=== PATIENT | female | born 1950 | race Caucasian/White ===

== ENCOUNTER 2017-05-25 10:44 | Emergency (ER) | payer MEDICARE, OTHER ==
[~2017-05-25] VITALS: Ht 165.1 cm; Wt 87.7 kg
[~2017-05-25 10:44] MED LIST: AVELOX400 MG OR; BREO ELLIPTA1 INH IN; CIPRO500 MG OR; CLONAZEPAM0.5 MG PO; CYMBALTA30 MG OR; DARVOCET-N 100100 MG OR; DULERA1 AE1 IN; FLEXERIL PO; GABAPENTIN300 MG PO; KLOR-CON M2020 MEQ PO; LINZESS145 MCG PO; LISINOP/HCTZ1 TA1 PO; LISINOP/HCTZ1 TA2 PO; LORTAB 10-325 M1 TAB PO; LORTAB 1010 MG PO; LUNESTA2 M2 PO; LYRICA25 MG PO; MELOXICAM15 MG OR; METRONIDAZOL500 MG PO; NEXIUM20 M1 PO; OXYCODO-APAP1 TA2 PO; PANTOPRAZOLE SO40 MG PO; PERCOCET 5/325M1 TAB OR; PREMARIN1.25 MG PO; RAPAFLO8 MG PO; REGLAN10 MG OR; SINGULAIR10 MG PO; SYMBALTA; SYNTHROID OR; SYNTHROID100 MCG PO; SYNTHROID50 MCG PO; TIZANIDINE4 MG OR; ULTRAM50 M1 PO; VALACYCLOVIR H500 MG PO; VICODIN HP1 TA1 PO; XYZAL5 MG PO; ZOFRAN ODT4 MG PO
[2017-05-25] MEDS ORDERED: LORTAB 1010 MG PO (11:38)
[2017-05-25] MEDS ORDERED: LORAZEPAM0.5 MG PO (11:39)
[2017-05-25] MEDS ORDERED: PREMARIN0.3 MG PO ×2 (11:40→11:41)
[2017-05-25] MEDS ORDERED: PANTOPRAZOLE SO40 MG PO (11:40)
[2017-05-25] MEDS ORDERED: VALACYCLOVIR H500 MG PO (11:42)
[2017-05-25] MEDS ORDERED: TIZANIDINE HCL4 MG PO (11:43)
[2017-05-25] MEDS ORDERED: ONDANSETRON HCL4 MG PO (11:44)
[2017-05-25] MEDS ORDERED: VENTOLIN HFA IN (11:45)
[2017-05-25] MEDS ORDERED: NASONEX50 MCG/ACT (11:45)
[2017-05-25] MEDS ORDERED: LINZESS145 MCG PO (11:46)
[2017-05-25] MEDS ORDERED: BREO ELLIPTA 101 INH IN (11:46)
[2017-05-25] MEDS ORDERED: VOLTAREN1%GEL TOP (11:47)
[2017-05-25] MEDS ORDERED: LIDOCAINE TD (11:51)
[2017-05-25] MEDS ORDERED: FLECTOR1.3 % EX (11:52)
[2017-05-25] MEDS ORDERED: LYRICA25 MG PO (11:53)
[2017-05-25] MEDS ORDERED: MEDDOSEPAK PO (13:14)
[2017-05-25] MEDS ORDERED: PEPCID20 MG PO (13:14)
[2017-05-25] MEDS ORDERED: BENADRYL 50MG C50 MG PO (13:14)
[2017-05-25 13:45] VITALS: BP 163/69
== END 2017-05-25 13:45 | disposition home or self-care (01) ==
LOC: ED 10:44
DX: T78.3XXA Angioneurotic edema, initial encounter (principal); I10 Essential (primary) hypertension; E03.9 Hypothyroidism, unspecified; M79.7 Fibromyalgia; Z87.11 Personal history of peptic ulcer disease; Z85.528 Personal history of other malignant neoplasm of kidney; Z85.42 Personal history of malignant neoplasm of other parts of uterus

== ENCOUNTER 2017-12-06 09:00 | Outpatient (RCR) | payer MEDICARE, OTHER ==
[~2017-12-06 09:00] MED LIST changes: +BENADRYL 50MG C50 MG PO; +BREO ELLIPTA 101 INH IN; +FLECTOR1.3 % EX; +LIDOCAINE TD; +LORAZEPAM0.5 MG PO; +MEDDOSEPAK PO; +NASONEX50 MCG/ACT; +ONDANSETRON HCL4 MG PO; +PEPCID20 MG PO; +PREMARIN0.3 MG PO; +TIZANIDINE HCL4 MG PO; +VENTOLIN HFA IN; +VOLTAREN1%GEL TOP
== END 2017-12-20 16:00 | disposition home or self-care (01) ==
LOC: PT 09:00
DX: M54.5 Low back pain (principal)

== ENCOUNTER → 2018-05-12 | Outpatient (REF) | payer MEDICARE, OTHER ==
[2018-05-12 11:49] LABS: HEMATOCRIT 40.8 % (37.0-47.0); HEMOGLOBIN 13.5 g/dl (12.0-16.0); IMMATURE GRANULOCYTES 0.3 % (0.0-5.0); MEAN CELL VOLUME 99.3 fL CALC (80.0-100.0); MEAN CORPUSCULAR HGB 32.8 pG CALC (26.0-32.0); MEAN CORPUSCULAR HGB CONC 33.1 g/L CALC (32.0-36.0); NEUT# 3.82 thou/uL (2.00-7.15); RED BLOOD COUNT 4.11 mill/uL (4.20-5.60); RED CELL DISTRI WIDTH 16.4 % (11.5-15.5)
[2018-05-12 12:26] LABS: ALBUMIN 4.5 g/dL (3.2-5.0); ALKALINE PHOSPHATASE 84 u/l (38-126); ANION GAP 17 (6-22 (CALC)); BILIRUBIN, TOTAL 0.4 mg/dL (0.0-1.4); BUN 14 mg/dL (8-23); BUN/CREATININE RATIO 20 (12-20 (CALC)); CARBON DIOXIDE 26 mmol/l (22-30); CHLORIDE 100 mmol/l (95-108); CREATININE 0.7 mg/dL (0.5-1.0); GFR > 60 ML/MIN (>=60 (CALC)); GFR FOR AFR.AMER. > 60 ML/MIN (>=60 (CALC)); POTASSIUM 4.3 mmol/l (3.5-5.1); SGOT/AST 83 u/l (9-36); SODIUM 138 mmol/l (137-146); TOTAL PROTEIN 7.3 g/dL (6.3-8.2)
== END | disposition home or self-care (01) ==
LOC: LAB 11:18
PROVIDERS: ATTEND Internal Medicine Gastroenterology
DX: R92.1 Mammographic calcification found on diagnostic imaging of breast (principal); D50.9 Iron deficiency anemia, unspecified